=== PATIENT | male | born 1975 | race Asian ===

== ENCOUNTER 2022-07-15 20:50 | Emergency (ER) | payer OTHER ==
[2022-07-15 20:56] VITALS: BP 141/90; PULSE 83; RESP 18; TEMP 98.2; BMI 26.4
[2022-07-15] MEDS ORDERED: IBUPROFEN 600 MG TABLET (FP) PO ONE ×2 (21:33→21:35)
[2022-07-15] MEDS ORDERED: LIDOCAINE 5% TOPICAL PATCH TP ONE (21:33)
[2022-07-15] MEDS ORDERED: LIDOCAINE 5% TOPICAL PATCH ONE (21:35)
[2022-07-15] MEDS ORDERED: LIDOCAINE PATCH REMOVAL MC SCH (22:00)
== END 2022-07-15 22:05 | disposition home or self-care (01) ==
LOC: FER 20:50
DX: S93.602A Unspecified sprain of left foot, initial encounter (principal)
CPT/HCPCS: 73630-TC-LT; 99283-25